=== PATIENT | female | born 1985 | race Asian ===

== ENCOUNTER 2018-11-12 22:21 | Emergency (ER) | payer BC, OTHER ==
[2018-11-12] MEDS: LIDOCAINE 1% (MDV) 20 ML INJ SC (22:38)
[2018-11-12] MEDS: ACETAMINOPHEN 325 MG TAB PO (22:46)
== END 2018-11-12 22:50 | disposition home or self-care (01) ==
LOC: FTE 22:21
DX: L60.0 Ingrowing nail (principal)
CPT/HCPCS: 99283